=== PATIENT | male | born 1960 | race Caucasian/White ===

== ENCOUNTER 2021-12-20 08:35 | Emergency (ER) | payer OTHER | END 2021-12-20 09:30 | disposition home or self-care (01) | LOC: JP.ED 08:35 | DX: S80.862A Insect bite (nonvenomous), left lower leg, initial encounter (principal); S91.332A Puncture wound without foreign body, left foot, initial encounter; Z79.899 Other long term (current) drug therapy; W57.XXXA Bitten or stung by nonvenomous insect and other nonvenomous arthropods, initial encounter | CPT/HCPCS: 99281; 99282 ==